=== PATIENT | female | born 1965 | race Caucasian/White ===

== ENCOUNTER 2019-04-01 11:25 | Emergency (ER) | payer BC ==
[~2019-04-01] VITALS: Ht 149.9 cm; Wt 65.8 kg
--- NOTE | 2019-04-01 11:37 | NUR ---
Dr Castillo at the bedside for MSE.
[2019-04-01] MEDS ORDERED: LORAZEPAM 2 MG/1 ML VIAL IM ONE ×2 (12:30→13:00)
[2019-04-01] MEDS ORDERED: LORAZEPAM 2 MG/1 ML VIAL ONE ×2 (12:31→13:18)
--- NOTE | 2019-04-01 14:00 | NUR ---
Patient discharged to home in stable conditon. Written and verbal after care instructions given. Patient verbalizes understanding of instructions.
== END 2019-04-01 14:02 | disposition home or self-care (01) ==
LOC: ER 11:25
DX: F41.0 Panic disorder [episodic paroxysmal anxiety] (principal); Z88.1 Allergy status to other antibiotic agents; Z88.8 Allergy status to other drugs, medicaments and biological substances
CPT/HCPCS: 82962; 96372 ×2; 99284; J2060 ×2; A4663